=== PATIENT | male | born 1945 | race Caucasian/White ===

== ENCOUNTER 2016-03-27 09:48 | Outpatient (CLI) | payer MEDICARE, OTHER ==
[~2016-03-27 09:48] MED LIST: AMLODIPINE BESY10 M1 PO; ATORVASTATIN CA20 M1 PO; DIOVAN HCT 12.51 TAB PO; DOXAZOSIN 4MG TA4 MG PO; K-DUR 2020 MEQ PO; LEVITRA20 MG PO; METOPROLOL SUC100 M1 PO; NAPROXEN500 MG PO; WARFARIN SODIUM5 MG PO
== END 2016-03-27 11:32 ==
LOC: ACC 09:48
DX: Z79.01 Long term (current) use of anticoagulants (principal); Z51.81 Encounter for therapeutic drug level monitoring
CPT/HCPCS: G0463

== ENCOUNTER 2016-06-12 09:55 | Outpatient (CLI) | payer MEDICARE, OTHER | END 2016-06-12 11:18 | LOC: ACC 09:55 | DX: Z79.01 Long term (current) use of anticoagulants (principal); Z51.81 Encounter for therapeutic drug level monitoring | CPT/HCPCS: G0463 ==

== ENCOUNTER 2016-12-18 10:02 | Outpatient (CLI) | payer MEDICARE, OTHER | END 2016-12-18 14:20 | LOC: ACC 10:02 | DX: Z79.01 Long term (current) use of anticoagulants (principal); Z51.81 Encounter for therapeutic drug level monitoring | CPT/HCPCS: G0463 ==

== ENCOUNTER 2017-01-29 10:06 | Outpatient (CLI) | payer MEDICARE, OTHER | END 2017-01-29 13:45 | LOC: ACC 10:06 | DX: Z79.01 Long term (current) use of anticoagulants (principal); Z51.81 Encounter for therapeutic drug level monitoring | CPT/HCPCS: G0463 ==